=== PATIENT | male | born 1970 | race Two or more races ===

== ENCOUNTER 2020-05-24 13:15 | Emergency (ER) | payer SELFPAY ==
[~2020-05-24] VITALS: Ht 154.9 cm; Wt 64.4 kg
[2020-05-24 15:15] VITALS: BP 135/75
[2020-05-24] MEDS ORDERED: ONDANSETRON HCL/PF 4 MG/2 ML VIAL IM ONE (15:30)
[2020-05-24] MEDS ORDERED: ONDANSETRON HCL/PF 4 MG/2 ML VIAL ONE (15:47)
== END 2020-05-24 16:25 | disposition home or self-care (01) ==
LOC: ER 13:21
DX: F10.139 Alcohol abuse with withdrawal, unspecified (principal); I10 Essential (primary) hypertension; E11.9 Type 2 diabetes mellitus without complications; Y90.9 Presence of alcohol in blood, level not specified
CPT/HCPCS: 70450; 82962; 96374; 99284; J2405

== ENCOUNTER 2021-10-10 22:50 | Emergency (ER) | payer MEDICAID ==
[~2021-10-10] VITALS: Ht 162.6 cm; Wt 660.0 kg
--- NOTE | 2021-10-10 23:11 | NUR ---
PATIENT BIBRA 39 FROM [facility] [address] C/O ETOH AND BUMP ON FOREHEAD. PATIENT A/O X 2, RR EVEN AND UNLAOBRED, NO SOB NOTED. PATIENT WITH NO ACUTE DISTRESS NOTED. PATIENT TAKEN TO ER BED 11. PATIENT CONNECTED TO [employer] AND [employer].
--- NOTE | 2021-10-10 23:20 | NUR ---
RT AT PT'S BEDSIDE FOR ABG
--- NOTE | 2021-10-10 23:21 | NUR ---
BLOOD COLLECTED SENT TO LAB
[2021-10-10 23:33] LABS: ABG BASE EXCESS -1.4 mmol/L; ABG PCO2 44.5 mmHg (35.0-45.0); ABG PH 7.356 (7.350-7.450); ABG PO2 88.9 mmHg (75.0-100.0); COHb 0.2 % (0.5-1.5); MetHb 0.3 % (0.0-1.5); O2Hb 95.1 % (94.0-97.0); SITE, ABG Right Radial; VENT MODE, BG room air
--- NOTE | 2021-10-10 23:33 | NUR ---
ABG RESULT GIVEN TO DR. CASTRO
[2021-10-10 23:42] LABS: BASOPHILS % (AUTO) 0.4 % (0.0-2.0); EOSINOPHILS % (AUTO) 0.9 % (0.0-6.0); HEMATOCRIT 44 % (39-51); HEMOGLOBIN 15.5 g/dL (13.5-17.5); LYMPHOCYTES # (AUTO) 2.2 K/uL (0.8-4.8); LYMPHOCYTES % (AUTO) 30.6 % (20.0-44.0); MEAN CORPUSCULAR HGB CONC 35 g/dl (31.0-36.0); MEAN CORPUSCULAR VOLUME 85 fL (80-96); MONOCYTES # (AUTO) 0.5 K/uL (0.1-1.30); NEUTROPHILS # (AUTO) 4.4 K/uL (1.8-8.9); NEUTROPHILS % (AUTO) 61.1 % (43.0-81.0); PLATELET COUNT (AUTO) 146 K/uL (150-450); WHITE BLOOD COUNT (AUTO) 7.2 K/uL (4.3-11.0)
[2021-10-10 23:50] LABS: CALCIUM, SERUM 8.6 mg/dL (8.5-10.1); CARBON DIOXIDE 26 mmol/L (21-32); CHLORIDE 99 mmol/L (98-107); CREATININE 0.8 mg/dL (0.6-1.3); POTASSIUM 3.2 mmol/L (3.5-5.1); SODIUM SERUM 136 mmol/L (136-145); UREA NITROGEN, BLOOD 10 mg/dL (7-18)
[2021-10-11 00:02] LABS: GLUCOSE 448 mg/dL (74-106)
[2021-10-11] MEDS ORDERED: INSULIN REGULAR, HUMAN 100 UNIT/ML 10 ML VIAL ONE (00:22)
[2021-10-11] MEDS ORDERED: IV NS 0.9% 1,000 ML IV PRN (00:30)
[2021-10-11] MEDS ORDERED: INSULIN REGULAR, HUMAN 100 UNIT/ML 10 ML VIAL IV ONE (00:30)
[2021-10-11] MEDS ORDERED: INSULIN REGULAR, HUMAN 100 UNIT/ML 10 ML VIAL SQ ONE (00:30)
--- NOTE | 2021-10-11 00:35 | NUR ---
PT SLEEPING. IN NO ACUTE DISTRESS AT THIS TIME. VSS. ALL NEEDS MET. SAFETY MEASURES CONTINUED.
--- NOTE | 2021-10-11 01:12 | NUR ---
POC ACCUCHECK BS 185
[2021-10-11 05:08] VITALS: BP 129/84
--- NOTE | 2021-10-11 06:05 | NUR ---
Patient discharged to home in stable condition. Written and verbal after care instructions given. Patient verbalizes understanding of instruction.
== END 2021-10-11 06:05 | disposition home or self-care (01) ==
LOC: ER 22:55
DX: S00.93XA Contusion of unspecified part of head, initial encounter (principal); E11.65 Type 2 diabetes mellitus with hyperglycemia; F10.229 Alcohol dependence with intoxication, unspecified; I10 Essential (primary) hypertension; X58.XXXA Exposure to other specified factors, initial encounter; Y93.89 Activity, other specified; Y92.89 Other specified places as the place of occurrence of the external cause; Y99.8 Other external cause status; Y90.9 Presence of alcohol in blood, level not specified
CPT/HCPCS: 36415; 36600 ×2; 70450; 80048; 82010; 82803; 82962; 85025; 96361; 96374; 99284; J1815; J7030

== ENCOUNTER 2021-11-26 07:28 | Emergency (ER) | payer MEDICAID ==
[~2021-11-26] VITALS: Ht 154.9 cm; Wt 56.7 kg
[2021-11-26 07:46] VITALS: BP 132/76
--- NOTE | 2021-11-26 08:30 | NUR ---
Aware of plan of care. NO obvious distress.
[2021-11-26 09:44] LABS: BILIRUBIN,URINE SMALL (NEGATIVE); COLOR,URINE YELLOW (YELLOW); LEUKOCYTE ESTERASE ,URINE NEGATIVE (NEGATIVE); NITRITE, URINE NEGATIVE (NEGATIVE); PH,URINE 5.5 (5.0-8.0); PROTEIN,URINE 30 mg/dl (NEGATIVE); UGLUCOSE NEGATIVE (NEGATIVE); UROBILINOGEN,URINE 0.2 EU/dL (0.2)
--- NOTE | 2021-11-26 10:11 | NUR ---
Patient discharged to home in stable condition. Written and verbal after care instructions given. Patient verbalizes understanding of instruction.
[2021-11-26 10:45] LABS: BACTERIA,URINE Rare /HPF (None Seen); RBC,URINE 0-2 /HPF (0-2); SQUAMOUS EPITHELIAL CELL,UR None Seen /HPF (None Seen); WBC,URINE NONE SEEN /HPF (0-3)
[2021-11-26 10:51] LABS: URINE AMORPHOUS URATE Many /HPF (None Seen)
== END 2021-11-26 10:11 | disposition home or self-care (01) ==
LOC: ER 07:36
DX: E11.65 Type 2 diabetes mellitus with hyperglycemia (principal); R31.9 Hematuria, unspecified; Z87.440 Personal history of urinary (tract) infections; Z60.2 Problems related to living alone
CPT/HCPCS: 81001; 82962-TC

== ENCOUNTER 2022-01-11 14:22 | Emergency (ER) | payer MEDICAID ==
[~2022-01-11] VITALS: Ht 157.5 cm; Wt 63.5 kg
--- NOTE | 2022-01-11 14:25 | NUR ---
BIBRA 89 W/ C/O HEADACHE AFTER HAVING A GLF X3 DAYS AGO, PT STATED THAT HE HAS BEEN DRINKING, LAST DRINK THIS MORNING PER PT. TO ER BED 11.
[2022-01-11 15:28] LABS: BASOPHILS % (AUTO) 0.5 % (0.0-2.0); EOSINOPHILS % (AUTO) 0.4 % (0.0-6.0); HEMATOCRIT 48 % (39-51); HEMOGLOBIN 16.3 g/dL (13.5-17.5); LYMPHOCYTES # (AUTO) 1.8 K/uL (0.8-4.8); MEAN CORPUSCULAR HGB CONC 34 g/dl (31.0-36.0); MEAN CORPUSCULAR VOLUME 87 fL (80-96); MONOCYTES # (AUTO) 0.3 K/uL (0.1-1.30); MONOCYTES % (AUTO) 6.7 % (2.0-12.0); NEUTROPHILS # (AUTO) 2.1 K/uL (1.8-8.9); NEUTROPHILS % (AUTO) 49.4 % (43.0-81.0); PLATELET COUNT (AUTO) 163 K/uL (150-450); RED BLOOD CELL COUNT(AUTO) 5.45 MIL/uL (4.5-6.0); WHITE BLOOD COUNT (AUTO) 4.2 K/uL (4.3-11.0)
--- NOTE | 2022-01-11 15:36 | NUR ---
PT TAKEN TO RADIOLOGY VIA [facility]
[2022-01-11 15:54] LABS: CALCIUM, SERUM 8.1 mg/dL (8.5-10.1); CREATININE 0.8 mg/dL (0.6-1.3); POTASSIUM 3.7 mmol/L (3.5-5.1)
[2022-01-11] MEDS ORDERED: ACETAMINOPHEN ES 500 MG TABLET ONE (16:17)
[2022-01-11] MEDS ORDERED: ACETAMINOPHEN ES 500 MG TABLET PO ONE (16:30)
[2022-01-11 17:38] VITALS: BP 144/87
--- NOTE | 2022-01-11 17:38 | NUR ---
Patient discharged to home in stable condition. Written and verbal after care instructions given. Patient verbalizes understanding of instruction.
== END 2022-01-11 17:39 | disposition home or self-care (01) ==
LOC: ER 14:40
DX: S09.90XA Unspecified injury of head, initial encounter (principal); E11.9 Type 2 diabetes mellitus without complications; Z60.2 Problems related to living alone; W18.39XA Other fall on same level, initial encounter; Y93.89 Activity, other specified; Y92.89 Other specified places as the place of occurrence of the external cause; Y99.8 Other external cause status
CPT/HCPCS: 36415; 70450-TC; 80048-TC; 85025-TC